=== PATIENT | male | born 1980 | race African-American/Black ===

== ENCOUNTER 2018-11-08 13:41 | Emergency (ER) | payer SELFPAY ==
[~2018-11-08] VITALS: Ht 185.4 cm; Wt 93.4 kg
--- NOTE | 2018-11-08 14:51 | Diagnostic Imaging Report ---
History: Dizziness, lightheaded Comparison studies: None Technique: Axial images were obtained from the skull base to the vertex. Coronal and sagittal reconstructions obtained from the axial data. Dose modulation, iterative reconstructionNo abnormalities, and/or weight based adjustment of the mA/kV was utilized to reduce the radiation dose to as low as reasonably achievable. Findings: Scalp/skull: . No fractures, blastic or lytic lesions. Extra-axial spaces: No masses. No fluid collections. Brain sulci: Appropriate for age. Ventricles: Normal in size and configuration. No hydrocephalus. Parenchyma: No abnormal densities. No masses, hemorrhage, acute or chronic cortical vascular insults. Sellar/suprasellar region: No abnormalities Craniocervical junction: Patent foramen magnum. No Chiari one malformation. IMPRESSION: No abnormalities . Signed by: DR Ike Avina M.D. on 11/08/2018 2:47 PM
--- NOTE | 2018-11-08 15:01 | Diagnostic Imaging Report ---
Chest, 2 views, 11/08/2018. History: Dizziness and headache. Comparison: None available. Findings: The cardiomediastinal silhouette and pulmonary vasculature are within normal limits. There is minimal biapical pleural thickening. The lungs are clear without evidence of consolidation or pleural effusion. There are no acute osseous or soft tissue abnormalities. Impression: No acute cardiopulmonary abnormality. Signed by: Demian Santiago on 11/08/2018 2:58 PM
[2018-11-08 15:45] LABS: BASOPHILS % 0.3 % (0.0-1.0); EOSINOPHILS # (AUTO) 0.2 (0.0-0.4); EOSINOPHILS % 2.9 % (0.0-6.0); HEMATOCRIT 45.3 % (38.2-49.6); LYMPHOCYTES # (AUTO) 2.5 (1.0-3.2); LYMPHOCYTES % 35.9 % (18.0-39.1); MEAN CORPUSCULAR HEMOGLOBIN 30.2 pg (28-32); MEAN CORPUSCULAR HGB CONC 33.1 g/dL (31-35); MEAN CORPUSCULAR VOLUME 91.3 fL (81-99); MONOCYTES # (AUTO) 0.6 (0.2-0.8); NEUTROPHILS # (AUTO) 3.6 (2.1-6.9); NEUTROPHILS % 52.5 % (38.7-80.0); PLATELET COUNT 239 x10e3/uL (140-360); RED BLOOD COUNT 4.96 x10e6/uL (4.3-5.7); RED CELL DISTRIBUTION WIDTH 12.8 % (11.7-14.4)
[2018-11-08 15:54] LABS: INR 1.01; PROTHROMBIN TIME 13.8 seconds (11.9-14.5)
[2018-11-08 15:55] LABS: PARTIAL THROMBOPLASTIN TIME 27.6 seconds (23.8-35.5)
[2018-11-08 16:04] LABS: ALANINE AMINOTRANSFERASE 11 IU/L (0-55); ALBUMIN 3.8 g/dL (3.5-5.0); ALBUMIN/GLOBULIN RATIO 1.2 (0.8-2.0); ALKALINE PHOSPHATASE 70 IU/L (40-150); ANION GAP 11.1 mmol/L (8-16); BLOOD UREA NITROGEN 10 mg/dL (7-26); BUN/CREATININE RATIO 8 (6-25); CALCIUM 9.9 mg/dL (8.4-10.2); CARBON DIOXIDE 28 mmol/L (22-29); CHLORIDE 102 mmol/L (98-107); CREATINE KINASE 88 IU/L (30-200); CREATININE, SERUM 1.24 mg/dL (0.72-1.25); EST GLOMERULAR FILTRATION RATE > 60 ML/MIN (60-); GLUCOSE 85 mg/dL (74-118); POTASSIUM 4.1 mmol/L (3.5-5.1); SODIUM 137 mmol/L (136-145)
[2018-11-08 18:00] LABS: AMPHETAMINES SCREEN,URINE NEGATIVE (NEGATIVE); BENZODIAZEPINES SCREEN,URINE NEGATIVE (NEGATIVE); PHENCYCLIDINE SCREEN,URINE NEGATIVE (NEGATIVE)
== END 2018-11-08 18:52 | disposition home or self-care (01) ==
LOC: ER 13:41
DX: F19.10 Other psychoactive substance abuse, uncomplicated (principal); R51 Headache; I10 Essential (primary) hypertension; R00.1 Bradycardia, unspecified
CPT/HCPCS: 36415; 70450; 71046; 80053; 80307; 82550; 82553; 84484; 85025; 85610; 85730; 93005; 99284